=== PATIENT | female | born 1940 | race Caucasian/White ===

== ENCOUNTER → 2016-12-15 | Outpatient (CLI) | payer MEDICARE, BC ==
[~2016-12-15] MED LIST: ASPIRIN 32325 MG/TA1 PO; ASPIRIN E.C. 8181 MG PO; BENADRYL25 MG PO; CALCIUM 600MG+D1 TAB PO; CELEBREX 200MG200 MG PO; COLACE 100100 MG/CAP PO; ESTRACE 1MG1 MG/TAB PO; ESTROPIPATE; FISH OIL 1000MG1 CAP PO; FOLIC ACID 11 MG/TA1 PO; LEVOXYL0.125 MG PO; METAMUCIL3.4 GM/DOS PO; METHIMAZOLE; NATURAL IRON65 MG PO; NORCO 325 MG-7.1 TAB PO; OSTEO-BI-FLEX 21 TAB PO; Orajel MM; PRAVACHOL 20MG20 MG PO; RANITIDINE HYD300 MG PO; TOPROL XL 50MG50 MG PO; TOPROL XL50 MG PO; TYLENOL 500MG500 MG PO; ULTRAM 50MG TAB50 MG PO; VESICARE10 MG PO; VITAMIN D; VITAMIN D32000 I1 PO; VITAMINC1000TA PO; WOMEN'S DAILY F1 TAB PO; ZANTAC 300300 MG PO
== END ==
LOC: COL.VAS 16:42
DX: M79.604 Pain in right leg (principal); M79.89 Other specified soft tissue disorders

== ENCOUNTER → 2017-07-04 | Outpatient (CLI) | payer MEDICARE, BC | LOC: MC.RAD 08:55 | DX: Z12.31 Encounter for screening mammogram for malignant neoplasm of breast (principal) ==

== ENCOUNTER → 2017-11-23 | Outpatient (CLI) | payer MEDICARE, BC | LOC: COL.VAS 09:38 | DX: I08.1 Rheumatic disorders of both mitral and tricuspid valves (principal); I27.0 Primary pulmonary hypertension ==

== ENCOUNTER 2018-03-10 21:16 | Emergency (ER) | payer MEDICARE, BC ==
[~2018-03-10] VITALS: Ht 157.5 cm; Wt 88.6 kg
[2018-03-10 21:26] VITALS: BP 170/84; TEMP 98.8
[2018-03-10] MEDS ORDERED: TYLENOL 500MG500 MG PO (22:31)
[2018-03-10] MEDS ORDERED: ESTRACE 1MG1 MG/TAB PO (22:32)
[2018-03-10] MEDS ORDERED: IBU800 M1 PO (22:33)
[2018-03-10] MEDS ORDERED: LAMISIL250 M1 (22:35)
[2018-03-10] MEDS ORDERED: ULTRAM 50MG TAB50 MG PO (22:36)
[2018-03-10] MEDS ORDERED: CEPHALEXIN500 M1 PO ×2 (22:48)
[2018-03-10 23:02] VITALS: PULSE 70
== END 2018-03-10 23:02 | disposition home or self-care (01) ==
LOC: COL.ER 21:16
DX: S61.431A Puncture wound without foreign body of right hand, initial encounter (principal); Z79.82 Long term (current) use of aspirin; W26.8XXA Contact with other sharp object(s), not elsewhere classified, initial encounter

== ENCOUNTER 2018-05-09 02:14 | Emergency (ER) | payer MEDICARE, BC ==
[~2018-05-09] VITALS: Ht 157.5 cm; Wt 86.8 kg
[~2018-05-09 02:14] MED LIST changes: +CEPHALEXIN500 M1 PO; +IBU800 M1 PO; +LAMISIL250 M1; +LEVOXYL0.112 MG PO; -LEVOXYL0.125 MG PO
[2018-05-09 02:18] VITALS: TEMP 99.6
[2018-05-09 03:05] LABS: BASO % 0.3 % (0.0-2.0); EOS # 0.1 (0.0-0.7); EOS % 1.1 % (0-4.0); GRAN % 76.9 % (42.2-75.2); HEMOGLOBIN 10.3 g/dl (12.5-16.0); LYMPH % 11.3 % (20.0-51.0); MEAN CELL VOLUME 88 fl (80.0-100.0); MEAN CORPUSCULAR HEMOGLOBIN 30 pg (27.0-31.0); MEAN CORPUSCULAR HGB CONC 33 g/dl (33.0-37.0); MEAN PLATELET VOLUME 10.3 fl (7.4-10.4); MONO # 0.9 (0.1-0.6); MONO % 10.1 % (1.7-9.3); PLATELET COUNT 212 K/mm3 (130-400); RED BLOOD COUNT 3.49 M/mm3 (4.10-5.30); REDCELL DISTRIBUTION WIDTH-CV 13.6 % (11.5-14.5)
[2018-05-09 03:06] LABS: HEMATOCRIT 30.8 % (37.0-47.0)
[2018-05-09 03:10] LABS: PROTHROMBIN TIME 11.5 SECONDS (9.7-12.8)
[2018-05-09 03:13] LABS: PARTIAL THROMBOPLASTIN TIME 29.1 SECONDS (26.0-37.0)
[2018-05-09 03:16] LABS: ALANINE AMINOTRANSFERASE 24 U/L (9-52); ALKALINE PHOSPHATASE 73 U/L (50-136); ANION GAP 11 mmol/L (7-16); AST,SGOT 19 U/L (15-37); BILIRUBIN,TOTAL 0.7 mg/dL (0.0-1.0); BLOOD UREA NITROGEN 14 mg/dL (7-17); CALCIUM 8.6 mg/dL (8.4-10.2); CARBON DIOXIDE 26 mmol/L (22-30); CHLORIDE 98 mmol/L (98-107); GLUCOSE 134 mg/dL (74-106); POTASSIUM 3.3 mmol/L (3.4-5.0); SODIUM 135 mmol/L (137-145); TOTAL PROTEIN 6.5 gm/dL (6.4-8.2)
[2018-05-09 03:19] LABS: ALBUMIN 3.3 gm/dL (3.5-5.0)
[2018-05-09 03:28] LABS: TROPONIN-I < 0.012 ng/mL (0.000-0.034)
[2018-05-09] MEDS ORDERED: TOPROL XL 50MG50 MG PO (04:56)
[2018-05-09] MEDS ORDERED: CRESTOR20 MG PO (04:57)
[2018-05-09] MEDS ORDERED: CALCIUM CITRATE1 TA1 PO (04:59)
[2018-05-09 05:00] VITALS: BP 138/74; PULSE 84
[2018-05-09] MEDS ORDERED: K-DUR20 MEQ PO (05:01)
[2018-05-09] MEDS ORDERED: LASIX 20MG TABL20 MG PO (05:01)
[2018-05-09] MEDS ORDERED: LEVAQUIN 5500 MG/TA1 PO (05:02)
[2018-05-09] MEDS ORDERED: LASIX 40MG TABL40 MG PO (05:03)
[2018-05-09] MEDS ORDERED: COLACE 100100 MG/CAP PO (20:36)
== END 2018-05-09 05:18 | disposition home or self-care (01) ==
LOC: COL.ER 02:14
PROVIDERS: Family Medicine
DX: K21.9 Gastro-esophageal reflux disease without esophagitis (principal); I10 Essential (primary) hypertension; Z79.82 Long term (current) use of aspirin

== ENCOUNTER 2018-05-09 15:24 | Inpatient (IN) | payer MEDICARE, BC ==
[~2018-05-09] VITALS: Ht 157.5 cm; Wt 89.9 kg
[~2018-05-09 15:24] MED LIST changes: +CALCIUM CITRATE1 TA1 PO; +CRESTOR20 MG PO; +K-DUR20 MEQ PO; +LASIX 20MG TABL20 MG PO; +LASIX 40MG TABL40 MG PO; +LEVAQUIN 5500 MG/TA1 PO
[2018-05-09 16:07] LABS: BASO % 0.4 % (0.0-2.0); EOS # 0.2 (0.0-0.7); EOS % 1.6 % (0-4.0); GRAN # 6.8 (1.4-6.5); GRAN % 73.4 % (42.2-75.2); HEMOGLOBIN 10.6 g/dl (12.5-16.0); LYMPH # 1.1 (1.2-3.4); LYMPH % 11.5 % (20.0-51.0); MEAN CELL VOLUME 89 fl (80.0-100.0); MEAN CORPUSCULAR HEMOGLOBIN 30 pg (27.0-31.0); MEAN CORPUSCULAR HGB CONC 34 g/dl (33.0-37.0); MEAN PLATELET VOLUME 10.3 fl (7.4-10.4); MONO # 1.2 (0.1-0.6); MONO % 12.8 % (1.7-9.3); PLATELET COUNT 218 K/mm3 (130-400); RED BLOOD COUNT 3.53 M/mm3 (4.10-5.30); REDCELL DISTRIBUTION WIDTH-CV 13.8 % (11.5-14.5)
[2018-05-09 16:08] LABS: HEMATOCRIT 31.4 % (37.0-47.0)
[2018-05-09 16:33] LABS: TROPONIN-I < 0.012 ng/mL (0.000-0.034)
[2018-05-09 18:38] LABS: ALBUMIN 3.5 gm/dL (3.5-5.0); CALCIUM 8.9 mg/dL (8.4-10.2); CREATININE, serum 0.9 mg/dL (0.52-1.25); POTASSIUM 3.3 mmol/L (3.4-5.0); TOTAL PROTEIN 6.9 gm/dL (6.4-8.2)
[2018-05-09 19:57] VITALS: BP 120/44; PULSE 73; TEMP 98.9
[2018-05-09] MEDS ORDERED: COLACE 100100 MG/CAP PO (20:36)
[2018-05-09 20:57] LABS: MAGNESIUM 1.4 mg/dL (1.6-2.3); PHOSPHOROUS 3.3 mg/dL (2.5-4.5)
[2018-05-09 21:20] LABS: C-REACTIVE PROTEIN 11.7 mg/dL (0.0-0.9)
[2018-05-09 21:24] LABS: THYROID STIMULATING HORMONE 0.825 uIU/mL (0.465-4.680)
[2018-05-09 21:28] LABS: PROTHROMBIN TIME 11.4 SECONDS (9.7-12.8)
[2018-05-09 21:31] LABS: PARTIAL THROMBOPLASTIN TIME 28.5 SECONDS (26.0-37.0)
[2018-05-09 22:13] VITALS: BP 148/48; PULSE 92; TEMP 98.3
[2018-05-09 23:30] VITALS: BP 112/42; PULSE 86; TEMP 98.8
[2018-05-10] VITALS (13 sets, daily range): BP systolic 96–139; BP diastolic 37–67; PULSE 76–105; TEMP 98.3–100.1
[2018-05-10 07:05] LABS: BASO % 0.4 % (0.0-2.0); EOS # 0.2 (0.0-0.7); GRAN # 5.4 (1.4-6.5); GRAN % 70.3 % (42.2-75.2); LYMPH # 1.1 (1.2-3.4); LYMPH % 14.6 % (20.0-51.0); MEAN CELL VOLUME 89 fl (80.0-100.0); MEAN CORPUSCULAR HEMOGLOBIN 29 pg (27.0-31.0); MEAN CORPUSCULAR HGB CONC 33 g/dl (33.0-37.0); MEAN PLATELET VOLUME 10.6 fl (7.4-10.4); MONO # 0.9 (0.1-0.6); MONO % 11.3 % (1.7-9.3); PLATELET COUNT 218 K/mm3 (130-400); REDCELL DISTRIBUTION WIDTH-CV 13.9 % (11.5-14.5)
[2018-05-10 07:09] LABS: HEMATOCRIT 30.3 % (37.0-47.0)
[2018-05-10 07:17] LABS: ALBUMIN 3.1 gm/dL (3.5-5.0); BILIRUBIN,TOTAL 0.8 mg/dL (0.0-1.0); CALCIUM 8.7 mg/dL (8.4-10.2); CHOLESTEROL RISK RATIO 2.4; CREATININE, serum 0.89 mg/dL (0.52-1.25); POTASSIUM 3.7 mmol/L (3.4-5.0); TOTAL PROTEIN 6.3 gm/dL (6.4-8.2)
[2018-05-10 07:29] LABS: TROPONIN-I 0.155 ng/mL (0.000-0.034)
[2018-05-11 03:50] VITALS: BP 132/49; PULSE 72; TEMP 97.5
[2018-05-11 07:39] VITALS: BP 120/50; PULSE 70; TEMP 98
[2018-05-11 08:04] LABS: BASO % 0.4 % (0.0-2.0); EOS # 0.3 (0.0-0.7); EOS % 3.6 % (0-4.0); GRAN % 67.4 % (42.2-75.2); HEMOGLOBIN 10.6 g/dl (12.5-16.0); LYMPH # 1.3 (1.2-3.4); LYMPH % 17.8 % (20.0-51.0); MEAN CELL VOLUME 89 fl (80.0-100.0); MEAN CORPUSCULAR HEMOGLOBIN 30 pg (27.0-31.0); MEAN CORPUSCULAR HGB CONC 34 g/dl (33.0-37.0); MEAN PLATELET VOLUME 10.4 fl (7.4-10.4); MONO # 0.8 (0.1-0.6); MONO % 10.5 % (1.7-9.3); PLATELET COUNT 253 K/mm3 (130-400); RED BLOOD COUNT 3.55 M/mm3 (4.10-5.30); REDCELL DISTRIBUTION WIDTH-CV 13.6 % (11.5-14.5)
[2018-05-11 08:12] LABS: HEMATOCRIT 31.6 % (37.0-47.0)
[2018-05-11 08:25] LABS: CALCIUM 9.2 mg/dL (8.4-10.2); CREATININE, serum 0.95 mg/dL (0.52-1.25); MAGNESIUM 1.6 mg/dL (1.6-2.3); POTASSIUM 3.2 mmol/L (3.4-5.0)
[2018-05-11 08:39] LABS: TROPONIN-I 0.121 ng/mL (0.000-0.034)
[2018-05-11 11:49] VITALS: BP 110/46; PULSE 78; TEMP 98.1
== END 2018-05-11 14:18 | disposition home or self-care (01) | DRG 392 ==
LOC: COL.ER 15:24 → MEDICAL 18:17
PROVIDERS: Emergency Medicine; Nurse Practitioner Family; Physician Assistant
DX: K21.9 Gastro-esophageal reflux disease without esophagitis (principal); I10 Essential (primary) hypertension; G89.29 Other chronic pain; E87.6 Hypokalemia; E83.42 Hypomagnesemia; G47.33 Obstructive sleep apnea (adult) (pediatric)
CPT/HCPCS: 99222-AI; 99239; A9502; G0378; J1940; J2270; J2405; J2785; J3475; Q9967

== ENCOUNTER 2018-11-29 18:14 | Emergency (ER) | payer MEDICARE, BC ==
[~2018-11-29] VITALS: Ht 157.5 cm; Wt 86.4 kg
[2018-11-29 18:29] VITALS: TEMP 96.8
[2018-11-29 19:03] LABS: BASO # 0.1 (0.0-0.2); BASO % 0.9 % (0.0-2.0); EOS # 0.1 (0.0-0.7); EOS % 1.1 % (0-4.0); GRAN % 75.4 % (42.2-75.2); HEMOGLOBIN 10.7 g/dl (12.5-16.0); LYMPH # 1.3 (1.2-3.4); LYMPH % 15.8 % (20.0-51.0); MEAN CELL VOLUME 88 fl (80.0-100.0); MEAN CORPUSCULAR HEMOGLOBIN 29 pg (27.0-31.0); MEAN CORPUSCULAR HGB CONC 32 g/dl (33.0-37.0); MEAN PLATELET VOLUME 10.3 fl (7.4-10.4); MONO # 0.5 (0.1-0.6); MONO % 6.5 % (1.7-9.3); PLATELET COUNT 255 K/mm3 (130-400); RED BLOOD COUNT 3.75 M/mm3 (4.10-5.30); REDCELL DISTRIBUTION WIDTH-CV 13.8 % (11.5-14.5)
[2018-11-29 19:20] LABS: ALANINE AMINOTRANSFERASE 22 U/L (9-52); ALBUMIN 4.1 gm/dL (3.5-5.0); ALKALINE PHOSPHATASE 76 U/L (50-136); ANION GAP 7 mmol/L (7-16); AST,SGOT 24 U/L (15-37); BILIRUBIN,TOTAL 0.4 mg/dL (0.0-1.0); BLOOD UREA NITROGEN 19 mg/dL (7-17); CALCIUM 8.8 mg/dL (8.4-10.2); CARBON DIOXIDE 30 mmol/L (22-30); CHLORIDE 100 mmol/L (98-107); CREATININE, serum 1.07 mg/dL (0.52-1.25); GLUCOSE 167 mg/dL (74-106); POTASSIUM 3.2 mmol/L (3.4-5.0); SODIUM 136 mmol/L (137-145); TOTAL PROTEIN 7.2 gm/dL (6.4-8.2)
[2018-11-29 19:31] LABS: TROPONIN-I < 0.012 ng/mL (0.000-0.034)
[2018-11-29 19:40] LABS: COLLECTION METHOD CLEAN CATCH
[2018-11-29 19:49] LABS: INR 0.9 (0.8-3.0); PROTHROMBIN TIME 10.3 SECONDS (9.7-12.8)
[2018-11-29 19:50] LABS: MUCOUS Present /lpf; PH 6 (5-8); URINE APPEARANCE Hazy; URINE BACTERIA Rare /hpf; URINE BILIRUBIN Negative (NEGATIVE); URINE BLOOD Negative (NEGATIVE); URINE COLOR Yellow; URINE GLUCOSE Negative (NEGATIVE); URINE KETONE Negative (NEGATIVE); URINE LEUKOCYTE ESTERASE Negative (NEGATIVE); URINE NITRATE Negative (NEGATIVE); URINE PROTEIN(semi-quant) 1+ (NEGATIVE); URINE RBC 0-2 /hpf; URINE UROBILINOGEN Negative (NEGATIVE)
[2018-11-29 21:15] VITALS: BP 143/72; PULSE 67
== END 2018-11-29 21:58 | disposition home or self-care (01) ==
LOC: COL.ER 18:14
PROVIDERS: Emergency Medicine
DX: T40.4X5A Adverse effect of other synthetic narcotics, initial encounter (principal); E87.6 Hypokalemia; K21.9 Gastro-esophageal reflux disease without esophagitis; I10 Essential (primary) hypertension; E78.5 Hyperlipidemia, unspecified; E03.9 Hypothyroidism, unspecified; G89.29 Other chronic pain; G62.9 Polyneuropathy, unspecified; Z95.0 Presence of cardiac pacemaker; Z79.82 Long term (current) use of aspirin; Z79.1 Long term (current) use of non-steroidal anti-inflammatories (NSAID)
CPT/HCPCS: J2765; J7030

== ENCOUNTER → 2019-06-25 | Outpatient (CLI) | payer MEDICARE, BC | LOC: COL.VAS 14:48 | DX: M79.604 Pain in right leg (principal) ==

== ENCOUNTER → 2020-03-24 | Outpatient (CLI) | payer MEDICARE, BC | LOC: COL.RAD 09:08 | DX: R39.14 Feeling of incomplete bladder emptying (principal); N28.1 Cyst of kidney, acquired ==

== ENCOUNTER 2020-05-16 21:35 | Emergency (ER) | payer MEDICARE, BC ==
[~2020-05-16] VITALS: Ht 157.5 cm; Wt 86.4 kg
[2020-05-16 21:39] VITALS: BP 128/81; TEMP 97.9
[2020-05-16] MEDS ORDERED: CEPHALEXIN500 M1 PO ×2 (22:09→22:14)
[2020-05-16 22:22] VITALS: PULSE 81
== END 2020-05-16 22:22 | disposition home or self-care (01) ==
LOC: COL.ER 21:35
DX: S80.862A Insect bite (nonvenomous), left lower leg, initial encounter (principal); Z79.82 Long term (current) use of aspirin; W57.XXXA Bitten or stung by nonvenomous insect and other nonvenomous arthropods, initial encounter

== ENCOUNTER 2020-10-04 17:30 | Inpatient (IN) | payer MEDICARE, BC ==
[~2020-10-04] VITALS: Ht 157.5 cm; Wt 81.0 kg
[2020-10-04 18:36] LABS: COLLECTION METHOD CLEAN CATCH
[2020-10-04 18:41] LABS: BASO % 0.2 % (0.0-2.0); EOS % 0.4 % (0-4.0); GRAN # 3.1 (1.4-6.5); GRAN % 69.7 % (42.2-75.2); HEMATOCRIT 39.8 % (37.0-47.0); HEMOGLOBIN 13.1 g/dl (12.5-16.0); LYMPH # 0.9 (1.2-3.4); LYMPH % 20.2 % (20.0-51.0); MEAN CELL VOLUME 83 fl (80.0-100.0); MEAN CORPUSCULAR HEMOGLOBIN 27 pg (27.0-31.0); MEAN CORPUSCULAR HGB CONC 33 g/dl (33.0-37.0); MEAN PLATELET VOLUME 9.5 fl (7.4-10.4); MONO # 0.4 (0.1-0.6); MONO % 9.1 % (1.7-9.3); PLATELET COUNT 282 K/mm3 (130-400); REDCELL DISTRIBUTION WIDTH-CV 16.5 % (11.5-14.5)
[2020-10-04 18:44] LABS: PH 7 (5-8); URINE APPEARANCE Clear; URINE BACTERIA None Seen /hpf; URINE BILIRUBIN Negative (NEGATIVE); URINE BLOOD Negative (NEGATIVE); URINE COLOR Straw; URINE GLUCOSE Negative (NEGATIVE); URINE KETONE Negative (NEGATIVE); URINE LEUKOCYTE ESTERASE Negative (NEGATIVE); URINE NITRATE Negative (NEGATIVE); URINE PROTEIN(semi-quant) Negative (NEGATIVE); URINE RBC 0-2 /hpf; URINE UROBILINOGEN Negative (NEGATIVE)
[2020-10-04 18:57] LABS: ALBUMIN 4.3 gm/dL (3.5-5.0); BILIRUBIN,TOTAL 0.5 mg/dL (0.0-1.0); C-REACTIVE PROTEIN 0.8 mg/dL (0.0-0.9); CALCIUM 8.5 mg/dL (8.4-10.2); CREATININE, serum 0.73 (0.52-1.25); TOTAL PROTEIN 7.5 gm/dL (6.4-8.2)
[2020-10-04 19:11] LABS: POTASSIUM 2.6 mmol/L (3.4-5.0)
[2020-10-04] MEDS ORDERED: SYNTHROID0.1 MG/TAB PO (23:40)
[2020-10-04] MEDS ORDERED: TYLENOL 325MG325 MG PO (23:48)
[2020-10-04] MEDS ORDERED: PEPCID40 MG PO (23:51)
[2020-10-05 00:13] VITALS: BP 138/58; BP 138/78; PULSE 77; TEMP 98.8
--- NOTE | 2020-10-05 00:30 | NUR ---
Admitted to medical floor from ER, DX afib, covid +,, in droplet/contact Isolation. VSS, temp 99.2, sats 96-97% on RA, Up to bathroom with walker - steady on feet- Did receive Potassium and Magnesium in the ER. Tele on.
[2020-10-05 02:57] VITALS: BP 120/68; PULSE 98; TEMP 98.8
[2020-10-05] MEDS ORDERED: VESICARE10 MG PO ×2 (03:14→06:59)
--- NOTE | 2020-10-05 05:35 | NUR ---
No requests, Tele on- afib rate 80/min,, o2 sats 95% on RA, temp 98.8. Up to bathroom with walker-voiding yellow clear urine. Denies pain. In droplet/contact Isolation.
--- NOTE | 2020-10-05 08:26 | NUR ---
SHIFT REPORT RECEVIED. NIGHT NURSE REMAINED AT BEDSIDE TO COLLECT AM LABS. PT DENEIS ANY OTHER NEEDS AT THIS TIME
[2020-10-05 08:52] VITALS: BP 119/59; PULSE 69; TEMP 97.7
[2020-10-05 08:59] LABS: LACTATE DEHYDROGENASE 502 U/L (313-618); POTASSIUM 3.4 mmol/L (3.4-5.0); TRIGLYCERIDE 109 mg/dL
[2020-10-05 09:13] LABS: TROPONIN-I < 0.012 ng/mL (0.000-0.035)
[2020-10-05 09:29] LABS: TSH w REFLEX 0.123 uIU/mL (0.465-4.680)
[2020-10-05 11:53] VITALS: BP 142/66; PULSE 75; TEMP 97.5
[2020-10-05 12:14] LABS: PARTIAL THROMBOPLASTIN TIME 30.8 SECONDS (26.0-37.0)
[2020-10-05 12:15] LABS: INR 0.9 (0.8-3.0); PROTHROMBIN TIME 9.9 SECONDS (9.7-12.8)
--- NOTE | 2020-10-05 13:42 | NUR ---
pt rounded on. assisted into bathroom. was speaking to son on phone. would like PRN ativan dose after lunch so she can nap. RT in room. no other needs at this time. compliant with fluid restriction
[2020-10-05 16:00] VITALS: BP 138/64; PULSE 88; TEMP 97.8
--- NOTE | 2020-10-05 16:59 | NUR ---
Mobile Electronics Installer contacted patient by phone to discuss discharge planning as she is COVID positive. Patient states her life partner, Wai is currently at [facility] and will likely pass away. Patient is tearful and states she and Wai have been together a long time. SW offered emotional support. Patient lives in [place] and sees Dr. James for primary care. Patient obtains medications from [facility] with no difficulties. Patient states she has walkers, canes, a wheelchair, transport chair, and that her home is handicap accessible due to her partner Wai's needs. Patient states she is normally independent with ADLS and plans to return home upon discharge. Patient has DPOA-HC in EMR which designates Wai, her daughter Nava (ph#[phone]) and her son, Seamus (ph#[phone]). SW will continue to follow for discharge needs.
--- NOTE | 2020-10-05 17:58 | NUR ---
PT ASSISTED INTO SHOWER. REQUIRED SET UP ONLY. REPORTS SENSE OF SMELL NOW ACTIVE. TASTE STILL NOT BACK TO NORMAL. NO OTHER NEEDS. UP EATING DINNER
[2020-10-05 19:49] VITALS: BP 122/56; PULSE 83; TEMP 97.3
--- NOTE | 2020-10-05 23:37 | NUR ---
Pt resting in bed, assessment completed and medications given per MAR. pt denies shortness of breath and is on room air, lung sounds are slightly diminished and cough is nonproductive. heart sounds are irregular and pt is in AFIB shown on Tele monitor, rate controlled. no other needs at this time, will continue to monitor.
[2020-10-06] VITALS: BP 132/53; PULSE 73; TEMP 98.3
[2020-10-06 04:00] VITALS: BP 114/48; PULSE 66; TEMP 97.1
--- NOTE | 2020-10-06 06:20 | NUR ---
pt sleeping in bed most of the night, called for any needs. no reports of pain or shortness of breath, continues to be on room air. no other needs at this time.
[2020-10-06 08:11] VITALS: BP 120/70; PULSE 80; TEMP 97.3
--- NOTE | 2020-10-06 09:45 | NUR ---
PT PLEASANT, AOX4, VERY TALKATIVE, PT DENIES SOB BUT APPEARS TO HAVE LABORED BREATHING AT REST. PT REPORTS AMBULATING WITH WALKER WITH EVERY COMMERCIAL BREAK ON TV. PT REPORTING NEUROPATHY PAIN IN BLE, SHE REPORTS USING A "LASER LIGHT PAD" AT HOME FOR THE PAIN. PT MEDICATIONS GIVEN, VITALS REVIEWED, ASSESSMENT PERFORMED. MORE WATER AND BRIEFS BROUGHT IN PER PT REQUEST. NO OTHER NEEDS.
[2020-10-06 11:30] VITALS: BP 118/68; PULSE 72; TEMP 96.1
[2020-10-06 16:09] VITALS: BP 108/68; PULSE 78; TEMP 97.2
--- NOTE | 2020-10-06 16:38 | NUR ---
Feeder Tender spoke jane Coello RN who advised patient has been independent in her room.
--- NOTE | 2020-10-06 17:08 | NUR ---
PT ANXIOUS ABOUT IN LUCAN. PT REPORTS EXERCISING IN ROOM DURING COMMERCIAL BREAKS WITH WALKER. PT PLEASANT MOST OF THE TIME, A0X4, VITALS STABLE, ONE LOWER SYSTOLIC PRESSURE OF 108 MOST RECENTLY. ALL MEDICATIONS GIVEN, IND IN ROOM. DENIES SOB WITH EXERTION. NO OTHER NEEDS.
[2020-10-06 20:39] VITALS: BP 122/76; PULSE 76; TEMP 98.9
[2020-10-07] VITALS: BP 128/66; PULSE 75; TEMP 97.4
--- NOTE | 2020-10-07 00:18 | NUR ---
Pt resting in bed, assisted to the bathroom. assessment completed and medications given per JAN. on room air, oxygen sat 97%. pt denies shortness of breath and pain. nonproductive dry cough. heart sounds irregular, AFIB rate controlled. no fever, vital signs are stable. no other needs at this time, will continue to monitor.
[2020-10-07 04:09] VITALS: BP 132/75; PULSE 76; TEMP 98.6
--- NOTE | 2020-10-07 06:18 | NUR ---
pt sleeping on cpap during the night, independent in the room and called for any needs or assistance. no other needs at this time.
[2020-10-07 08:21] VITALS: BP 130/42; PULSE 68; TEMP 98
--- NOTE | 2020-10-07 08:21 | NUR ---
PT C/O HEADACHE 04/05, TYLENOL GIVEN, HEADACHE SINCE RESOLVED, PT AOX4, REPORTS FEELING WEAKER THAN YESTERDAY, PT STILL AMBULATING IN ROOM, PT VITALS TAKEN, MEDS GIVEN, ASSESSMENT PERFORMED, LABS DRAWN, JOERU NOTIFIED OF CRITICAL POTASSIUM, POTASSIUM REPLACEMENT ORDERED/GIVEN. NO OTHER NEEDS AT THIS TIME.
[2020-10-07 08:45] LABS: BASO % 0.1 % (0.0-2.0); GRAN # 7.1 (1.4-6.5); GRAN % 83.7 % (42.2-75.2); HEMOGLOBIN 13.7 g/dl (12.5-16.0); LYMPH % 11.5 % (20.0-51.0); MEAN CELL VOLUME 86 fl (80.0-100.0); MEAN CORPUSCULAR HEMOGLOBIN 27 pg (27.0-31.0); MEAN CORPUSCULAR HGB CONC 32 g/dl (33.0-37.0); MONO # 0.4 (0.1-0.6); MONO % 4.5 % (1.7-9.3); PLATELET COUNT 327 K/mm3 (130-400); RED BLOOD COUNT 5.03 M/mm3 (4.10-5.30); REDCELL DISTRIBUTION WIDTH-CV 16.7 % (11.5-14.5)
[2020-10-07 08:50] LABS: CALCIUM 9.2 mg/dL (8.4-10.2); CREATININE, serum 0.72 (0.52-1.25)
[2020-10-07 08:54] LABS: POTASSIUM 2.9 mmol/L (3.4-5.0)
[2020-10-07] MEDS ORDERED: ELIQUIS 5MG PO (10:01)
[2020-10-07] MEDS ORDERED: TOPROL XL 25MG25 MG PO (10:01)
[2020-10-07] MEDS ORDERED: PROAIR HFA0.09 MG/AC IH (10:01)
[2020-10-07] MEDS ORDERED: ZITHROMAX500 M2 PO (11:03)
[2020-10-07] MEDS ORDERED: DECADRON6 MG PO (11:04)
--- NOTE | 2020-10-07 11:16 | NUR ---
ATTEMPTED TO CALL BACK ALVIN FROM [place], NO ANSWER, POSSIBLE WRONG NUMBER WRITTEN DOWN.
--- NOTE | 2020-10-07 11:46 | NUR ---
Dress Fitter collaborated with Hospitalist who advised patient is cleared for discharge today. PANCHO spoke with patient who states she is ready to get home and will be driving herself home. Patient will not require home oxygen at discharge. PANCHO discussed Home Health Services with patient who doesn't think she will need it, but is open to having services set up for a short time. Patient would like to have [facility]. Patient has no concerns about returning home at this time. PANCHO contacted patient's son, Seamus to review discharge plan. Seamus is in agreement with plan for discharge home today [facility]. PANCHO contacted Gretchen at [facility] and faxed referral. Gretchen advised they would sheepskin pickler patient for services. PANCHO faxed discharge orders. No additional needs at this time.
[2020-10-07 12:11] VITALS: BP 138/62; PULSE 88; TEMP 99.1
--- NOTE | 2020-10-07 15:15 | NUR ---
DISCHARGE EDUCATION PROVIDED FOR PT. MEDICATIONS WENT OVER THOROUGHLY, PT MENTIONED BEING CONCERNED ABOUT AFFORDING ELLIQUIS, BUT MENTIONED GETTING IT FREE FROM DR. PEREZ HER PCP. BLOOD DRAWN FOR POTASSIUM LEVEL. NO OTHER NEEDS AT THIS TIME.
--- NOTE | 2020-10-07 17:05 | NUR ---
PT INT DISCONTINUED. PT ESCORTED OUT WITH BELONGINGS ADN DISCHARGE PAPERWORK. NO OTHER NEEDS AT THIS TIME.
== END 2020-10-07 17:05 | disposition home or self-care (01) | DRG 179 ==
LOC: COL.ER 17:30 → MEDICAL 22:33
PROVIDERS: Emergency Medicine; Nurse Practitioner Family; Student in an Organized Health Care Education/Training Program
DX: U07.1 COVID-19 (principal); E66.9 Obesity, unspecified; I48.91 Unspecified atrial fibrillation; G47.30 Sleep apnea, unspecified; G89.29 Other chronic pain; Z96.641 Presence of right artificial hip joint; E03.9 Hypothyroidism, unspecified; K21.9 Gastro-esophageal reflux disease without esophagitis; E87.6 Hypokalemia; E83.42 Hypomagnesemia; Z79.82 Long term (current) use of aspirin; Z90.710 Acquired absence of both cervix and uterus; Z90.89 Acquired absence of other organs; Z68.32 Body mass index [BMI] 32.0-32.9, adult
CPT/HCPCS: 99223-AI; 99233-AI; 99239; J0456; J0696; J1650; J1885; J3475; J7030; J7050; J8540

== ENCOUNTER → 2020-11-13 | Day surgery (SDC) | payer MEDICARE, BC ==
[~2020-11-13] MED LIST changes: +DECADRON6 MG PO; +ELIQUIS 5MG PO; +PEPCID40 MG PO; +PROAIR HFA0.09 MG/AC IH; +SYNTHROID0.1 MG/TAB PO; +TOPROL XL 25MG25 MG PO; +TYLENOL 325MG325 MG PO; +ZITHROMAX500 M2 PO
== END ==
LOC: COL.CAR 11-12 07:00
DX: I48.0 Paroxysmal atrial fibrillation (principal); Z53.8 Procedure and treatment not carried out for other reasons

== ENCOUNTER 2020-12-08 09:31 | Day surgery (SDC) | payer MEDICARE, BC ==
[~2020-12-08] VITALS: Ht 157.6 cm; Wt 78.6 kg
[2020-12-08] VITALS (7 sets, daily range): BP systolic 108–143; BP diastolic 59–98; PULSE 52–70; TEMP 98
[~2020-12-08 09:31] MED LIST changes: -CALCIUM CITRATE1 TA1 PO; +CALCIUM/MAGNESI1 TAB PO; -SYNTHROID0.1 MG/TAB PO; +SYNTHROID0.112 MG/T PO; +VITAMIN D31000 I1 PO; -VITAMIN D32000 I1 PO
[2020-12-08 10:19] LABS: MEAN CELL VOLUME 87 fl (80.0-100.0); MEAN CORPUSCULAR HEMOGLOBIN 28 pg (27.0-31.0); MEAN CORPUSCULAR HGB CONC 33 g/dl (33.0-37.0); MEAN PLATELET VOLUME 10.1 fl (7.4-10.4); PLATELET COUNT 230 K/mm3 (130-400); RED BLOOD COUNT 3.87 M/mm3 (4.10-5.30); REDCELL DISTRIBUTION WIDTH-CV 16.7 % (11.5-14.5)
[2020-12-08 10:22] LABS: HEMATOCRIT 33.7 % (37.0-47.0)
[2020-12-08 10:34] LABS: CALCIUM 8.9 mg/dL (8.4-10.2); CREATININE, serum 0.91 (0.52-1.25); MAGNESIUM 1.7 mg/dL (1.6-2.3); POTASSIUM 3.3 mmol/L (3.4-5.0)
[2020-12-08 10:42] LABS: INR 1.4 (0.8-3.0); PROTHROMBIN TIME 15.5 SECONDS (9.7-12.8)
[2020-12-08 11:05] LABS: THYROID STIMULATING HORMONE 1.31 uIU/mL (0.465-4.680)
[2020-12-08] MEDS ORDERED: ELIQUIS 5MG PO (11:21)
[2020-12-08] MEDS ORDERED: ESTRACE 1MG1 MG/TAB PO (11:22)
[2020-12-08] MEDS ORDERED: ZOVIRAX 200MG200 MG PO (11:23)
[2020-12-08] MEDS ORDERED: FIBER0.52 GM PO (11:23)
[2020-12-08] MEDS ORDERED: PROAIR HFA0.09 MG/AC IH (11:24)
[2020-12-08] MEDS ORDERED: LASIX 40MG TABL40 MG PO (11:25)
[2020-12-08] MEDS ORDERED: TOPROL XL 25MG25 MG PO (11:26)
[2020-12-08] MEDS ORDERED: SHINGRIX V50 MCG/0.5 IM (11:29)
[2020-12-08] MEDS ORDERED: PACERONE200 MG PO (12:21)
[2020-12-08] MEDS ORDERED: DEMADEX 20MG20 M1 PO (12:22)
[2020-12-08] MEDS ORDERED: ALDACTONE 25MG25 M1 PO (12:23)
--- NOTE | 2020-12-08 13:15 | NUR ---
Discharge instructions gien to pt.pt verbalizes understanding.INT removed,catheter tip intact.Pt escorted out via wheelchair by this nurse.
== END 2020-12-08 15:16 | disposition home or self-care (01) ==
LOC: COL.CAR 09:31
PROVIDERS: Internal Medicine Cardiovascular Disease
DX: I48.0 Paroxysmal atrial fibrillation (principal); I10 Essential (primary) hypertension; E03.9 Hypothyroidism, unspecified; E78.5 Hyperlipidemia, unspecified; K21.9 Gastro-esophageal reflux disease without esophagitis; G47.33 Obstructive sleep apnea (adult) (pediatric); G62.9 Polyneuropathy, unspecified; M19.90 Unspecified osteoarthritis, unspecified site; Z88.5 Allergy status to narcotic agent; Z88.8 Allergy status to other drugs, medicaments and biological substances; Z96.641 Presence of right artificial hip joint; Z90.710 Acquired absence of both cervix and uterus; Z79.01 Long term (current) use of anticoagulants; Z20.822 Contact with and (suspected) exposure to COVID-19
CPT/HCPCS: J7030

== ENCOUNTER 2021-02-13 20:39 | Emergency (ER) | payer MEDICARE, BC ==
[~2021-02-13] VITALS: Ht 157.5 cm; Wt 75.0 kg
[~2021-02-13 20:39] MED LIST changes: +ALDACTONE 25MG25 M1 PO; +DEMADEX 20MG20 M1 PO; +FIBER0.52 GM PO; +PACERONE200 MG PO; +SHINGRIX V50 MCG/0.5 IM; +ZOVIRAX 200MG200 MG PO
[2021-02-13 20:53] VITALS: TEMP 98.2
[2021-02-13 21:07] LABS: BASO % 0.5 % (0.0-2.0); EOS # 0.1 (0.0-0.7); EOS % 0.8 % (0-4.0); GRAN # 4.6 (1.4-6.5); GRAN % 61.9 % (42.2-75.2); HEMATOCRIT 37.8 % (37.0-47.0); HEMOGLOBIN 12.6 g/dl (12.5-16.0); LYMPH # 2.1 (1.2-3.4); LYMPH % 27.3 % (20.0-51.0); MEAN CELL VOLUME 89 fl (80.0-100.0); MEAN CORPUSCULAR HEMOGLOBIN 30 pg (27.0-31.0); MEAN CORPUSCULAR HGB CONC 33 g/dl (33.0-37.0); MEAN PLATELET VOLUME 9.8 fl (7.4-10.4); MONO # 0.7 (0.1-0.6); MONO % 9.1 % (1.7-9.3); PLATELET COUNT 300 K/mm3 (130-400); RED BLOOD COUNT 4.23 M/mm3 (4.10-5.30); REDCELL DISTRIBUTION WIDTH-CV 15.2 % (11.5-14.5)
[2021-02-13 21:20] LABS: ALANINE AMINOTRANSFERASE 60 U/L (4-34); ALBUMIN 4.2 gm/dL (3.5-5.0); ALKALINE PHOSPHATASE 88 U/L (50-136); ANION GAP 8 mmol/L (7-16); AST,SGOT 61 U/L (15-37); BILIRUBIN,TOTAL 0.2 mg/dL (0.0-1.0); BLOOD UREA NITROGEN 42 mg/dL (7-17); CALCIUM 9.1 mg/dL (8.4-10.2); CARBON DIOXIDE 32 mmol/L (22-30); CHLORIDE 98 mmol/L (98-107); CREATININE, serum 1.37 (0.52-1.25); GLUCOSE 124 mg/dL (74-106); POTASSIUM 3.8 mmol/L (3.4-5.0); SODIUM 138 mmol/L (137-145); TOTAL PROTEIN 7.6 gm/dL (6.4-8.2)
[2021-02-13 21:39] LABS: TROPONIN-I < 0.012 ng/mL (0.000-0.035)
[2021-02-14 03:27] VITALS: BP 114/65; PULSE 56
== END 2021-02-14 03:40 | disposition home or self-care (01) ==
LOC: COL.ER 20:39
PROVIDERS: Emergency Medicine
DX: N17.9 Acute kidney failure, unspecified (principal); R07.89 Other chest pain; I10 Essential (primary) hypertension; E03.9 Hypothyroidism, unspecified; E78.5 Hyperlipidemia, unspecified; E05.00 Thyrotoxicosis with diffuse goiter without thyrotoxic crisis or storm; E66.9 Obesity, unspecified; Z79.01 Long term (current) use of anticoagulants; Z98.890 Other specified postprocedural states; Z88.5 Allergy status to narcotic agent; Z79.82 Long term (current) use of aspirin; Z79.890 Hormone replacement therapy

== ENCOUNTER 2021-04-25 20:22 | Observation (INO) | payer MEDICARE, BC ==
[~2021-04-25] VITALS: Ht 157.5 cm; Wt 75.0 kg
[2021-04-25 21:56] LABS: BASO % 0.7 % (0.0-2.0); EOS # 0.2 (0.0-0.7); EOS % 3.4 % (0-4.0); GRAN # 3.5 (1.4-6.5); GRAN % 59.7 % (42.2-75.2); HEMATOCRIT 37.6 % (37.0-47.0); HEMOGLOBIN 12.3 g/dl (12.5-16.0); LYMPH # 1.4 (1.2-3.4); LYMPH % 24.4 % (20.0-51.0); MEAN CELL VOLUME 93 fl (80.0-100.0); MEAN CORPUSCULAR HEMOGLOBIN 30 pg (27.0-31.0); MEAN CORPUSCULAR HGB CONC 33 g/dl (33.0-37.0); MEAN PLATELET VOLUME 10.4 fl (7.4-10.4); MONO # 0.7 (0.1-0.6); MONO % 11.5 % (1.7-9.3); PLATELET COUNT 245 K/mm3 (130-400); RED BLOOD COUNT 4.04 M/mm3 (4.10-5.30); REDCELL DISTRIBUTION WIDTH-CV 14.1 % (11.5-14.5)
[2021-04-25 22:14] LABS: ALANINE AMINOTRANSFERASE 21 U/L (4-34); ALBUMIN 4.1 gm/dL (3.5-5.0); ALKALINE PHOSPHATASE 81 U/L (50-136); ANION GAP 5 mmol/L (7-16); AST,SGOT 33 U/L (15-37); BILIRUBIN,TOTAL 0.4 mg/dL (0.0-1.0); BLOOD UREA NITROGEN 33 mg/dL (7-17); CALCIUM 9.6 mg/dL (8.4-10.2); CARBON DIOXIDE 33 mmol/L (22-30); CHLORIDE 100 mmol/L (98-107); CREATININE, serum 1.46 (0.52-1.25); GLUCOSE 102 mg/dL (74-106); POTASSIUM 3.3 mmol/L (3.4-5.0); SODIUM 138 mmol/L (137-145); TOTAL PROTEIN 7.3 gm/dL (6.4-8.2)
[2021-04-25 22:37] LABS: TROPONIN-I < 0.012 ng/mL (0.000-0.035)
[2021-04-26 03:41] VITALS: BP 129/71; PULSE 60; TEMP 98.1
--- NOTE | 2021-04-26 04:17 | NUR ---
PT TRANSFERRED TO MEDICAL FLOOR VIA ED STAFF AT APPROXIMATELY 0300 HOURS. PT A/OX4, VSS, PATIENT 02 ROOM AIR, ASSESMENT AND ADMISSION COMPLETE. TELEMETRY MONITORING ON. MEDICATIONS ADMINISTERED ORDERED. PT DENIES PAIN, SOB, DIZZINESS, CHEST TIGHTNESS. PT CURRENTLY EXPRESSES NO ADDITIONAL NEEDS. CALL LIGHT WITHIN REACH.
[2021-04-26 04:43] LABS: BASO # 0.1 (0.0-0.2); BASO % 0.8 % (0.0-2.0); EOS # 0.3 (0.0-0.7); EOS % 4.2 % (0-4.0); GRAN # 4.1 (1.4-6.5); GRAN % 64.1 % (42.2-75.2); HEMATOCRIT 35.7 % (37.0-47.0); HEMOGLOBIN 11.6 g/dl (12.5-16.0); LYMPH # 1.4 (1.2-3.4); LYMPH % 21.3 % (20.0-51.0); MEAN CELL VOLUME 93 fl (80.0-100.0); MEAN CORPUSCULAR HEMOGLOBIN 30 pg (27.0-31.0); MEAN CORPUSCULAR HGB CONC 33 g/dl (33.0-37.0); MONO # 0.6 (0.1-0.6); MONO % 9.3 % (1.7-9.3); PLATELET COUNT 227 K/mm3 (130-400); RED BLOOD COUNT 3.83 M/mm3 (4.10-5.30); REDCELL DISTRIBUTION WIDTH-CV 14.1 % (11.5-14.5)
[2021-04-26 05:05] LABS: ANION GAP 2 mmol/L (7-16); BLOOD UREA NITROGEN 31 mg/dL (7-17); CALCIUM 9.5 mg/dL (8.4-10.2); CARBON DIOXIDE 33 mmol/L (22-30); CHLORIDE 100 mmol/L (98-107); GLUCOSE 166 mg/dL (74-106); POTASSIUM 3.8 mmol/L (3.4-5.0); SODIUM 134 mmol/L (137-145)
[2021-04-26 05:18] LABS: TROPONIN-I 6 HR POST INITIAL < 0.012 ng/mL (0.000-0.034)
[2021-04-26 05:26] LABS: CHOLESTEROL 147 mg/dL (120-200); CHOLESTEROL RISK RATIO 2.8; HDL CHOLESTEROL 52 mg/dL; LDL CHOLESTEROL 76 mg/dL; MAGNESIUM 1.8 mg/dL (1.6-2.3); TRIGLYCERIDE 96 mg/dL
[2021-04-26 07:48] VITALS: BP 97/47; PULSE 52; TEMP 97.8
[2021-04-26 07:50] VITALS: BP 107/46
--- NOTE | 2021-04-26 08:24 | NUR ---
Shift assessment complete. Pt sitting on side of bed. Denies chest pain/SOA/dizziness since arrival to unit overnight. Heart RRR. Lungs CTA. A&Ox4. Call light in reach.
[2021-04-26] MEDS ORDERED: MAALOX ADVANCE148 ML PO (09:26)
--- NOTE | 2021-04-26 12:05 | NUR ---
Discharge instructions discussed w/pt and all questions answered. IV to left forearm removed, tip intact. Pt escorted out to vehicle w/all belongings.
== END 2021-04-26 12:00 | disposition home or self-care (01) ==
LOC: COL.ER 20:22 → MEDICAL 04-26 00:01
PROVIDERS: Emergency Medicine; Nurse Practitioner; Student in an Organized Health Care Education/Training Program; ADMIT Internal Medicine
DX: R07.89 Other chest pain (principal); K21.9 Gastro-esophageal reflux disease without esophagitis; K44.9 Diaphragmatic hernia without obstruction or gangrene; M79.2 Neuralgia and neuritis, unspecified; I48.0 Paroxysmal atrial fibrillation; E87.6 Hypokalemia; E78.5 Hyperlipidemia, unspecified; E03.9 Hypothyroidism, unspecified; Z86.16 Personal history of COVID-19; E83.42 Hypomagnesemia; E66.9 Obesity, unspecified; Z79.899 Other long term (current) drug therapy; Z79.01 Long term (current) use of anticoagulants; Z79.82 Long term (current) use of aspirin; Z79.890 Hormone replacement therapy
CPT/HCPCS: G0378

== ENCOUNTER → 2021-07-27 | Outpatient (CLI) | payer MEDICARE, BC ==
[~2021-07-27] MED LIST changes: +AK POLY BAC OP; +ASPIRIN 81M81 MG/TA2 PO; +CALCIUM 600600 MG PO; +CALCIUM-MAGNES1 EAC1 PO; +CEPHALEXIN250 M1 PO; +CORDARONE200 MG/TAB PO; +DULCOLAX STOOL100 MG PO; +FISH OIL 500 M1 EAC1 PO; +LIPITOR 80MG80 MG PO; +LOTRISONE CREAM15 GM TP; +MAALOX ADVANCE148 ML PO; +MASON NATURAL1200 MG PO; +MASON NATURAL2000 IU PO; +MAXITROL OPHTH3.5 GM OP; +MIRALAX PA17 GM/Dose PO; +NITROSTAT0.4 MG/TAB SL; +OMNICEF 300MG300 MG PO; +ONE-A-DAY ESSE1 EACH PO; +PLAVIX 75MG TAB75 MG PO; +PROTONIX 40MG T40 MG PO; +TYLENOL W/COD1 UDTAB PO; +WOMEN'S DAILY1 TAB PO
== END ==
LOC: MC.RAD 10:33
DX: N64.4 Mastodynia (principal); Q83.9 Congenital malformation of breast, unspecified

== ENCOUNTER 2021-08-03 07:58 | Day surgery (SDC) | payer MEDICARE, BC ==
[~2021-08-03] VITALS: Ht 157.5 cm; Wt 75.6 kg
[~2021-08-03 07:58] MED LIST changes: -AK POLY BAC OP; -ASPIRIN 81M81 MG/TA2 PO; -CALCIUM 600600 MG PO; -CALCIUM-MAGNES1 EAC1 PO; -CEPHALEXIN250 M1 PO; -CORDARONE200 MG/TAB PO; -DULCOLAX STOOL100 MG PO; -FISH OIL 500 M1 EAC1 PO; -LIPITOR 80MG80 MG PO; -LOTRISONE CREAM15 GM TP; -MASON NATURAL1200 MG PO; -MASON NATURAL2000 IU PO; -MAXITROL OPHTH3.5 GM OP; -MIRALAX PA17 GM/Dose PO; -NITROSTAT0.4 MG/TAB SL; -OMNICEF 300MG300 MG PO; -ONE-A-DAY ESSE1 EACH PO; -PLAVIX 75MG TAB75 MG PO; -PROTONIX 40MG T40 MG PO; -TYLENOL W/COD1 UDTAB PO; -WOMEN'S DAILY1 TAB PO
[2021-08-03 09:21] VITALS: BP 114/65; PULSE 55; TEMP 97.8
[2021-08-03] MEDS ORDERED: TYLENOL 500MG500 MG PO (10:11)
[2021-08-03] MEDS ORDERED: ASPIRIN 81M81 MG/TA2 PO (10:11)
[2021-08-03] MEDS ORDERED: VESICARE10 MG PO (10:12)
[2021-08-03] MEDS ORDERED: PEPCID40 MG PO (10:13)
[2021-08-03] MEDS ORDERED: ELIQUIS 5MG PO (10:13)
[2021-08-03] MEDS ORDERED: FISH OIL 500 M1 EAC1 PO (10:14)
[2021-08-03] MEDS ORDERED: SYNTHROID0.112 MG/T PO (10:15)
[2021-08-03] MEDS ORDERED: ONE-A-DAY ESSE1 EACH PO (10:15)
[2021-08-03] MEDS ORDERED: OSTEO-BI-FLEX 21 TAB PO (10:16)
[2021-08-03] MEDS ORDERED: CRESTOR20 MG PO (10:17)
[2021-08-03] MEDS ORDERED: K-DUR20 MEQ PO (10:17)
[2021-08-03] MEDS ORDERED: VITAMINC1000TA PO (10:18)
[2021-08-03] MEDS ORDERED: ALDACTONE 25MG25 M1 PO (10:19)
[2021-08-03] MEDS ORDERED: VITAMIN D31000 I1 PO (10:19)
[2021-08-03] MEDS ORDERED: CORDARONE200 MG/TAB PO (10:20)
[2021-08-03] MEDS ORDERED: LASIX 20MG TABL20 MG PO (10:20)
[2021-08-03] MEDS ORDERED: PROTONIX 40MG T40 MG PO (10:35)
[2021-08-03 10:40] VITALS: BP 109/73; PULSE 60; TEMP 97.1
[2021-08-03 10:45] VITALS: BP 114/62; PULSE 55
[2021-08-03 11:00] VITALS: BP 114/73; PULSE 54
[2021-08-03 11:15] VITALS: BP 142/60; PULSE 52
--- NOTE | 2021-08-03 18:19 | NUR ---
1040 Pt returns from endo procedure via cart and RN assist to GI Martin 4. Pt ambulates from cart to recliner with RN assist. Monitors on and alarms set. Call light within reach. Report received from DAPHNEY Wang. Pt alert and oriented. Pt requests applesauce, water and juice. Pt denies any pain or nausea. 1100 Pt taking food and drink well. No complications noted. 1220 Discharge instructions given to pt and daughter in law. All questions answered to their satisfaction. Handed to pt are a thank you card and discharge information. 1228 Pt transferred out of the hospital via wheelchair and DAPHNEY Wang assist, to private vehicle driven by daughter in law.
== END 2021-08-03 12:28 | disposition home or self-care (01) ==
LOC: SDCO 07:58
DX: K29.30 Chronic superficial gastritis without bleeding (principal); K44.9 Diaphragmatic hernia without obstruction or gangrene; R13.10 Dysphagia, unspecified; I48.91 Unspecified atrial fibrillation; I12.9 Hypertensive chronic kidney disease with stage 1 through stage 4 chronic kidney disease, or unspecified chronic kidney disease; N18.9 Chronic kidney disease, unspecified; Z86.16 Personal history of COVID-19; E03.9 Hypothyroidism, unspecified; Z20.822 Contact with and (suspected) exposure to COVID-19; G47.33 Obstructive sleep apnea (adult) (pediatric); I25.10 Atherosclerotic heart disease of native coronary artery without angina pectoris; E78.5 Hyperlipidemia, unspecified; Z79.890 Hormone replacement therapy; Z79.01 Long term (current) use of anticoagulants; Z79.82 Long term (current) use of aspirin; Z79.899 Other long term (current) drug therapy
CPT/HCPCS: J2704; J7030

== ENCOUNTER 2021-09-07 21:49 | Emergency (ER) | payer MEDICARE, BC ==
[~2021-09-07] VITALS: Ht 157.5 cm; Wt 75.0 kg
[~2021-09-07 21:49] MED LIST changes: +ASPIRIN 81M81 MG/TA2 PO; +CORDARONE200 MG/TAB PO; +FISH OIL 500 M1 EAC1 PO; +ONE-A-DAY ESSE1 EACH PO; +PROTONIX 40MG T40 MG PO
[2021-09-07 22:44] LABS: BASO % 0.7 % (0.0-2.0); EOS # 0.1 K/mm3 (0.0-0.7); EOS % 2.2 % (0-4.0); GRAN % 66.6 % (42.2-75.2); HEMATOCRIT 38.3 % (37.0-47.0); HEMOGLOBIN 12.7 g/dl (12.5-16.0); LYMPH # 1.2 K/mm3 (1.2-3.4); LYMPH % 19.4 % (20.0-51.0); MEAN CELL VOLUME 93 fl (80.0-100.0); MEAN CORPUSCULAR HEMOGLOBIN 31 pg (27.0-31.0); MEAN CORPUSCULAR HGB CONC 33 g/dl (33.0-37.0); MEAN PLATELET VOLUME 9.9 fl (7.4-10.4); MONO # 0.6 K/mm3 (0.1-0.6); MONO % 10.6 % (1.7-9.3); PLATELET COUNT 232 K/mm3 (130-400); RED BLOOD COUNT 4.14 M/mm3 (4.10-5.30); REDCELL DISTRIBUTION WIDTH-CV 14.4 % (11.5-14.5)
[2021-09-07 22:50] LABS: INR 1.2 (0.8-3.0); PROTHROMBIN TIME 12.8 SECONDS (9.7-12.8)
[2021-09-07 22:57] LABS: ALANINE AMINOTRANSFERASE 22 U/L (0-55); ALBUMIN 3.5 gm/dL (3.4-4.8); ALKALINE PHOSPHATASE 106 U/L (0-750); ANION GAP 11 mmol/L (7-16); AST,SGOT 25 U/L (5-34); BILIRUBIN,TOTAL 0.4 mg/dL (0.2-1.2); BLOOD UREA NITROGEN 36 mg/dL (10-20); CALCIUM 9.6 mg/dL (8.4-10.2); CARBON DIOXIDE 27 mmol/L (23-31); CHLORIDE 101 mmol/L (98-107); CREATININE, serum 1.57 mg/dL (0.57-1.11); GLUCOSE 155 mg/dL (70-99); POTASSIUM 3.7 mmol/L (3.5-4.5); SODIUM 139 mmol/L (136-145); TOTAL PROTEIN 7.3 gm/dL (6.2-8.1)
[2021-09-07 23:04] LABS: TROPONIN-I < 0.010 ng/mL (0.00-0.033)
[2021-09-07 23:54] LABS: COLLECTION METHOD CLEAN CATCH
[2021-09-08 00:14] LABS: MUCOUS Present /lpf; PH 6 (5-8); URINE APPEARANCE Cloudy; URINE BACTERIA Rare /hpf; URINE BILIRUBIN Negative (NEGATIVE); URINE BLOOD Negative (NEGATIVE); URINE COLOR Yellow; URINE GLUCOSE Negative (NEGATIVE); URINE KETONE Negative (NEGATIVE); URINE LEUKOCYTE ESTERASE 1+ (NEGATIVE); URINE NITRATE Positive (NEGATIVE); URINE PROTEIN(semi-quant) Negative (NEGATIVE); URINE RBC 0-2 /hpf; URINE UROBILINOGEN Negative (NEGATIVE)
[2021-09-08] MEDS ORDERED: OMNICEF 300MG300 MG PO (00:31)
[2021-09-08 01:09] VITALS: BP 135/64; PULSE 54; TEMP 98.5
== END 2021-09-08 01:09 | disposition home or self-care (01) ==
LOC: COL.ER 21:49
PROVIDERS: Nurse Practitioner Primary Care
DX: R06.02 Shortness of breath (principal); N39.0 Urinary tract infection, site not specified; I12.9 Hypertensive chronic kidney disease with stage 1 through stage 4 chronic kidney disease, or unspecified chronic kidney disease; N18.30 Chronic kidney disease, stage 3 unspecified; K21.9 Gastro-esophageal reflux disease without esophagitis; E78.5 Hyperlipidemia, unspecified; I48.91 Unspecified atrial fibrillation; Z79.82 Long term (current) use of aspirin; E07.9 Disorder of thyroid, unspecified; Z79.01 Long term (current) use of anticoagulants; Z79.890 Hormone replacement therapy; Z79.899 Other long term (current) drug therapy

== ENCOUNTER 2021-10-10 07:45 | Emergency (ER) | payer MEDICARE, BC ==
[~2021-10-10] VITALS: Ht 157.5 cm; Wt 75.0 kg
[~2021-10-10 07:45] MED LIST changes: +OMNICEF 300MG300 MG PO
[2021-10-10 07:55] VITALS: TEMP 96.9
[2021-10-10 08:30] LABS: BASO # 0.1 K/mm3 (0.0-0.2); BASO % 0.8 % (0.0-2.0); EOS # 0.1 K/mm3 (0.0-0.7); GRAN # 4.1 K/mm3 (1.4-6.5); HEMATOCRIT 39.3 % (37.0-47.0); HEMOGLOBIN 13.1 g/dl (12.5-16.0); LYMPH # 1.4 K/mm3 (1.2-3.4); LYMPH % 22.4 % (20.0-51.0); MEAN CELL VOLUME 93 fl (80.0-100.0); MEAN CORPUSCULAR HEMOGLOBIN 31 pg (27.0-31.0); MEAN CORPUSCULAR HGB CONC 33 g/dl (33.0-37.0); MONO # 0.4 K/mm3 (0.1-0.6); MONO % 6.5 % (1.7-9.3); PLATELET COUNT 224 K/mm3 (130-400); RED BLOOD COUNT 4.24 M/mm3 (4.10-5.30); REDCELL DISTRIBUTION WIDTH-CV 13.9 % (11.5-14.5)
[2021-10-10 08:39] LABS: INR 1.3 (0.8-3.0)
[2021-10-10 08:42] LABS: PARTIAL THROMBOPLASTIN TIME 32.2 SECONDS (26.0-37.0)
[2021-10-10 08:45] LABS: ALBUMIN 3.7 gm/dL (3.4-4.8); BILIRUBIN,TOTAL 0.5 mg/dL (0.2-1.2); CALCIUM 9.7 mg/dL (8.4-10.2); CREATININE, serum 1.36 mg/dL (0.57-1.11); POTASSIUM 3.6 mmol/L (3.5-4.5); TOTAL PROTEIN 7.1 gm/dL (6.2-8.1)
[2021-10-10 08:55] LABS: TROPONIN-I 0.12 ng/mL (0.00-0.033)
[2021-10-10 10:32] VITALS: BP 131/80; PULSE 60
== END 2021-10-10 10:32 | disposition short-term general hospital (02) ==
LOC: COL.ER 07:45
PROVIDERS: Family Medicine
DX: J81.1 Chronic pulmonary edema (principal); I21.3 ST elevation (STEMI) myocardial infarction of unspecified site; I48.91 Unspecified atrial fibrillation; E78.5 Hyperlipidemia, unspecified; K21.9 Gastro-esophageal reflux disease without esophagitis; I12.9 Hypertensive chronic kidney disease with stage 1 through stage 4 chronic kidney disease, or unspecified chronic kidney disease; N18.30 Chronic kidney disease, stage 3 unspecified; E07.9 Disorder of thyroid, unspecified; Z86.16 Personal history of COVID-19; Z88.6 Allergy status to analgesic agent; Z79.01 Long term (current) use of anticoagulants; Z79.82 Long term (current) use of aspirin; Z79.890 Hormone replacement therapy; Z79.899 Other long term (current) drug therapy
CPT/HCPCS: A4314; J1644; J1940; J3101

== ENCOUNTER 2021-10-14 09:34 | Inpatient (IN) | payer MEDICARE, BC ==
[~2021-10-14] VITALS: Ht 157.5 cm; Wt 76.6 kg
[2021-10-14] VITALS (64 sets, daily range): BP systolic 133; BP diastolic 63; PULSE 55–58; TEMP 98.2; O2SAT 70–99
[2021-10-14 10:36] LABS: GRAN # 9.4 K/mm3 (1.4-6.5); GRAN % 85.3 % (42.2-75.2); HEMOGLOBIN 11.9 g/dl (12.5-16.0); LYMPH # 0.9 K/mm3 (1.2-3.4); LYMPH % 7.9 % (20.0-51.0); MEAN CELL VOLUME 91 fl (80.0-100.0); MEAN CORPUSCULAR HEMOGLOBIN 31 pg (27.0-31.0); MEAN CORPUSCULAR HGB CONC 34 g/dl (33.0-37.0); MEAN PLATELET VOLUME 10.7 fl (7.4-10.4); MONO # 0.7 K/mm3 (0.1-0.6); MONO % 6.1 % (1.7-9.3); PLATELET COUNT 249 K/mm3 (130-400); RED BLOOD COUNT 3.81 M/mm3 (4.10-5.30)
[2021-10-14 10:37] LABS: HEMATOCRIT 34.6 % (37.0-47.0)
[2021-10-14 10:41] LABS: INR 1.1 (0.8-3.0); PROTHROMBIN TIME 12.3 SECONDS (9.7-12.8)
[2021-10-14 10:44] LABS: PARTIAL THROMBOPLASTIN TIME 25.3 SECONDS (26.0-37.0)
[2021-10-14 10:51] LABS: BILIRUBIN,TOTAL 0.5 mg/dL (0.2-1.2); CALCIUM 8.8 mg/dL (8.4-10.2); CREATININE, serum 1.13 mg/dL (0.57-1.11); POTASSIUM 3.7 mmol/L (3.5-4.5)
[2021-10-14 10:59] LABS: TROPONIN-I 4.422 ng/mL (0.00-0.033)
[2021-10-14] MEDS ORDERED: LIPITOR 80MG80 MG PO (14:35)
[2021-10-14] MEDS ORDERED: PLAVIX 75MG TAB75 MG PO (14:37)
[2021-10-14] MEDS ORDERED: CEPHALEXIN250 M1 PO (14:37)
[2021-10-14] MEDS ORDERED: TOPROL XL 25MG25 MG PO (14:38)
[2021-10-14] MEDS ORDERED: TYLENOL 325MG325 MG PO (14:40)
[2021-10-14] MEDS ORDERED: TYLENOL W/COD1 UDTAB PO (14:41)
[2021-10-14] MEDS ORDERED: ZOVIRAX 200MG200 MG PO (14:42)
[2021-10-14] MEDS ORDERED: CALCIUM 600600 MG PO (14:44)
[2021-10-14] MEDS ORDERED: CALCIUM-MAGNES1 EAC1 PO (14:44)
[2021-10-14] MEDS ORDERED: MASON NATURAL2000 IU PO (14:45)
[2021-10-14] MEDS ORDERED: LOTRISONE CREAM15 GM TP (14:46)
[2021-10-14] MEDS ORDERED: DULCOLAX STOOL100 MG PO (14:47)
[2021-10-14] MEDS ORDERED: ELIQUIS 5MG PO (14:47)
[2021-10-14] MEDS ORDERED: MASON NATURAL1200 MG PO (14:48)
[2021-10-14] MEDS ORDERED: PEPCID40 MG PO (14:48)
[2021-10-14] MEDS ORDERED: AK POLY BAC OP (14:50)
[2021-10-14] MEDS ORDERED: MAXITROL OPHTH3.5 GM OP (14:51)
[2021-10-14] MEDS ORDERED: MIRALAX PA17 GM/Dose PO (14:52)
[2021-10-14] MEDS ORDERED: OSTEO-BI-FLEX 21 TAB PO (14:52)
[2021-10-14] MEDS ORDERED: ALDACTONE 25MG25 M1 PO (14:53)
[2021-10-14] MEDS ORDERED: DEMADEX 20MG20 M1 PO (14:55)
[2021-10-14] MEDS ORDERED: VESICARE10 MG PO (14:56)
[2021-10-14] MEDS ORDERED: WOMEN'S DAILY1 TAB PO (14:57)
--- NOTE | 2021-10-14 21:50 | NUR ---
PATIENT ARRIVES FROM ER, GUILLE RN GIVES REPORT/ PATIENT DENIES PAIN AT THIS TIME/ IV NITRO DRIP ACTIVE AT 10 MCQ /MIN
[2021-10-15] VITALS (372 sets, daily range): BP systolic 94–139; BP diastolic 45–72; PULSE 50–60; TEMP 97.6–98.6; O2SAT 86–100
[2021-10-15 04:48] LABS: CALCIUM 8.8 mg/dL (8.4-10.2); CREATININE, serum 0.92 mg/dL (0.57-1.11); POTASSIUM 3.6 mmol/L (3.5-4.5)
[2021-10-15 06:14] LABS: EOS % 0.2 % (0-4.0); GRAN # 6.1 K/mm3 (1.4-6.5); GRAN % 72.3 % (42.2-75.2); HEMOGLOBIN 11.6 g/dl (12.5-16.0); LYMPH # 1.5 K/mm3 (1.2-3.4); MEAN CELL VOLUME 91 fl (80.0-100.0); MEAN CORPUSCULAR HEMOGLOBIN 31 pg (27.0-31.0); MEAN CORPUSCULAR HGB CONC 34 g/dl (33.0-37.0); MONO # 0.7 K/mm3 (0.1-0.6); MONO % 8.4 % (1.7-9.3); PLATELET COUNT 218 K/mm3 (130-400); RED BLOOD COUNT 3.72 M/mm3 (4.10-5.30); REDCELL DISTRIBUTION WIDTH-CV 14.3 % (11.5-14.5)
[2021-10-15 06:16] LABS: HEMATOCRIT 33.9 % (37.0-47.0)
--- NOTE | 2021-10-15 08:45 | NUR ---
Alert and oriented and resting in bed visiting with daughter at bedside. Reports that she slept well and denies any pain this morning. VS stable; will continue to monitor.
--- NOTE | 2021-10-15 09:54 | NUR ---
Attempted to have a BM this morning but was unsuccessful. Received ok per Dr. Loja to administer juice with miralax to help stimulate a bowel movement. Will monitor for success.
--- NOTE | 2021-10-15 13:10 | NUR ---
Discussed plan of care with DAPHNEY Roe with Dr. Loja. Patient has denied any chest pain or shortness of breath and reports "feeling good". Ok from Dr. Loja's stand point to discharge. Hospitalist notfied and will put in discharge orders.
[2021-10-15] MEDS ORDERED: NITROSTAT0.4 MG/TAB SL (13:27)
--- NOTE | 2021-10-15 13:27 | NUR ---
medical social worker met patient and patient's daughter Nava ([phone]) at patient's bedside. Patient reports that she lives at home alone here in [place]. Patient reports that she is fully independent with her activities of daily living. Reports that she always utilizes a walker to assist with ambulation and that she also have a cane, wheelchair, grab bars around for when she needs them. Patient uses a CPAP machine at home that is managed through [employer] [employer]. PCP is Dr. James and she utilizes [facility] for perscriptions with no cost difficulty. Patient does have a DPOA-HC established and the hospital has a copy of it on file listing her daughter as her agent. Nava lives in [place], but is planning on staying with the patient for about 3 weeks to make sure the patient is ok at home.
--- NOTE | 2021-10-15 14:00 | NUR ---
Discharge packed provided and reviewed with patient and daughter. Discharged to the ER exit with Daughter. Alert and oriented and in no distress upon dischaerge.
== END 2021-10-15 14:00 | disposition home or self-care (01) | DRG 313 ==
LOC: COL.ER 09:34 → ICU 17:06
PROVIDERS: Family Medicine; Physician Assistant; ADMIT Internal Medicine
DX: R07.9 Chest pain, unspecified (principal); N17.9 Acute kidney failure, unspecified; I25.10 Atherosclerotic heart disease of native coronary artery without angina pectoris; I48.91 Unspecified atrial fibrillation; E78.5 Hyperlipidemia, unspecified; G47.30 Sleep apnea, unspecified; E03.9 Hypothyroidism, unspecified; K21.9 Gastro-esophageal reflux disease without esophagitis; G89.29 Other chronic pain; D64.9 Anemia, unspecified; K44.9 Diaphragmatic hernia without obstruction or gangrene; F17.210 Nicotine dependence, cigarettes, uncomplicated; I12.9 Hypertensive chronic kidney disease with stage 1 through stage 4 chronic kidney disease, or unspecified chronic kidney disease; N18.9 Chronic kidney disease, unspecified; K59.00 Constipation, unspecified; Z96.641 Presence of right artificial hip joint; I25.2 Old myocardial infarction; Z95.5 Presence of coronary angioplasty implant and graft; Z79.82 Long term (current) use of aspirin; Z23 Encounter for immunization
CPT/HCPCS: 99223-AI; 99239; J3480

== ENCOUNTER 2021-11-24 12:15 | Outpatient (RCR) | payer MEDICARE, BC ==
[~2021-11-24 12:15] MED LIST changes: +AK POLY BAC OP; +CALCIUM 600600 MG PO; +CALCIUM-MAGNES1 EAC1 PO; +CEPHALEXIN250 M1 PO; +DULCOLAX STOOL100 MG PO; +LIPITOR 80MG80 MG PO; +LOTRISONE CREAM15 GM TP; +MASON NATURAL1200 MG PO; +MASON NATURAL2000 IU PO; +MAXITROL OPHTH3.5 GM OP; +MIRALAX PA17 GM/Dose PO; +NITROSTAT0.4 MG/TAB SL; +PLAVIX 75MG TAB75 MG PO; +TYLENOL W/COD1 UDTAB PO; +WOMEN'S DAILY1 TAB PO
== END 2021-11-26 | disposition home or self-care (01) ==
LOC: COL.CR
DX: Z48.812 Encounter for surgical aftercare following surgery on the circulatory system (principal); Z95.5 Presence of coronary angioplasty implant and graft

== ENCOUNTER → 2021-12-27 | Outpatient (RCR) | payer MEDICARE, BC | END | disposition home or self-care (01) | LOC: COL.CR | DX: Z48.812 Encounter for surgical aftercare following surgery on the circulatory system (principal); Z95.5 Presence of coronary angioplasty implant and graft ==

== ENCOUNTER 2022-01-13 08:08 | Emergency (ER) | payer MEDICARE, BC ==
[~2022-01-13] VITALS: Ht 157.5 cm; Wt 75.0 kg
[2022-01-13 08:15] VITALS: TEMP 97.9
[2022-01-13] MEDS ORDERED: KLOR-CON20 MEQ PO (08:48)
[2022-01-13 10:53] VITALS: BP 129/62; PULSE 51
== END 2022-01-13 10:48 | disposition home or self-care (01) ==
LOC: COL.ER 08:08
DX: M79.604 Pain in right leg (principal); I48.91 Unspecified atrial fibrillation; E03.9 Hypothyroidism, unspecified; E78.5 Hyperlipidemia, unspecified; K21.9 Gastro-esophageal reflux disease without esophagitis; I25.10 Atherosclerotic heart disease of native coronary artery without angina pectoris; Z95.5 Presence of coronary angioplasty implant and graft; Z79.01 Long term (current) use of anticoagulants; Z79.890 Hormone replacement therapy; Z79.899 Other long term (current) drug therapy; Z79.02 Long term (current) use of antithrombotics/antiplatelets

== ENCOUNTER → 2022-01-24 | Outpatient (RCR) | payer MEDICARE, BC ==
[~2022-01-24] MED LIST changes: +KLOR-CON20 MEQ PO
== END | disposition home or self-care (01) ==
LOC: COL.CR
DX: Z48.812 Encounter for surgical aftercare following surgery on the circulatory system (principal); Z95.5 Presence of coronary angioplasty implant and graft; I25.2 Old myocardial infarction

== ENCOUNTER 2022-02-09 13:17 | Outpatient (RCR) | payer MEDICARE, BC | END 2022-02-09 13:26 | disposition home or self-care (01) | LOC: COL.CR 13:17 | DX: Z48.812 Encounter for surgical aftercare following surgery on the circulatory system (principal); Z95.5 Presence of coronary angioplasty implant and graft; I25.2 Old myocardial infarction ==

== ENCOUNTER 2022-03-06 09:27 | Emergency (ER) | payer MEDICARE, BC ==
[~2022-03-06] VITALS: Ht 157.5 cm; Wt 75.0 kg
[2022-03-06 09:32] VITALS: TEMP 97.7
[2022-03-06 09:56] LABS: BASO % 0.4 % (0.0-2.0); EOS # 0.1 K/mm3 (0.0-0.7); EOS % 1.4 % (0.0-4.0); GRAN # 3.8 K/mm3 (1.4-6.5); GRAN % 68.1 % (42.2-75.2); HEMATOCRIT 36.4 % (37.0-47.0); HEMOGLOBIN 11.9 g/dl (12.5-16.0); LYMPH # 1.2 K/mm3 (1.2-3.4); LYMPH % 20.7 % (20.0-51.0); MEAN CELL VOLUME 91 fl (80.0-100.0); MEAN CORPUSCULAR HEMOGLOBIN 30 pg (27-31); MEAN CORPUSCULAR HGB CONC 33 g/dl (33.0-37.0); MEAN PLATELET VOLUME 10.2 fl (7.4-10.4); MONO # 0.5 K/mm3 (0.1-0.6); MONO % 8.9 % (1.7-9.3); PLATELET COUNT 217 K/mm3 (130-400); REDCELL DISTRIBUTION WIDTH-CV 16.4 % (11.5-14.5)
[2022-03-06 10:03] LABS: INR 1.2 (0.8-3.0); PROTHROMBIN TIME 13.5 SECONDS (9.7-12.8)
[2022-03-06 10:06] LABS: PARTIAL THROMBOPLASTIN TIME 32.9 SECONDS (26.0-37.0)
[2022-03-06 10:13] LABS: ALBUMIN 3.7 gm/dL (3.4-4.8); BILIRUBIN,TOTAL 0.5 mg/dL (0.2-1.2); CREATININE, serum 1.39 mg/dL (0.57-1.11); POTASSIUM 3.8 mmol/L (3.5-4.5); TOTAL PROTEIN 6.7 gm/dL (6.2-8.1)
[2022-03-06 10:18] LABS: TROPONIN-I 0.019 ng/mL (0.00-0.033)
[2022-03-06] MEDS ORDERED: PRILOSEC 20MG20 MG PO (13:23)
[2022-03-06 13:39] VITALS: BP 156/71; PULSE 47
== END 2022-03-06 13:36 | disposition home or self-care (01) ==
LOC: COL.ER 09:27
PROVIDERS: Family Medicine
DX: K21.9 Gastro-esophageal reflux disease without esophagitis (principal); Z86.74 Personal history of sudden cardiac arrest; Z95.5 Presence of coronary angioplasty implant and graft
CPT/HCPCS: C9113

== ENCOUNTER 2022-03-25 10:19 | Outpatient (RCR) | payer SELFPAY ==
[~2022-03-25 10:19] MED LIST changes: +PRILOSEC 20MG20 MG PO
== END 2022-03-26 ==
LOC: COL.CR
DX: Z29.8 Encounter for other specified prophylactic measures (principal)

== ENCOUNTER 2022-04-22 12:09 | Outpatient (RCR) | payer SELFPAY | END 2022-04-26 | LOC: COL.CR | DX: Z29.8 Encounter for other specified prophylactic measures (principal) ==

== ENCOUNTER 2022-05-25 14:55 | Outpatient (RCR) | payer SELFPAY | END 2022-05-26 | LOC: COL.CR | DX: Z29.8 Encounter for other specified prophylactic measures (principal) ==

== ENCOUNTER 2022-06-24 13:05 | Outpatient (RCR) | payer SELFPAY | END 2022-06-26 | LOC: COL.CR | DX: Z29.8 Encounter for other specified prophylactic measures (principal) ==

== ENCOUNTER → 2022-07-27 | Outpatient (RCR) | payer SELFPAY | LOC: COL.CR | DX: Z29.8 Encounter for other specified prophylactic measures (principal) ==

== ENCOUNTER 2022-12-26 12:09 | Outpatient (RCR) | payer MEDICARE, BC ==
[~2022-12-26 12:09] MED LIST changes: +B-121000 MCG PO; +FIBERCON PO; +GLUCOSAMINE & C1 TAB PO; +K-TAB20 PO; +MAGNESIUM500 MG PO; +MULTI VITAMINS1 TAB PO; +OMEGA-3 1000 MG1 CAP PO; +PREDNISONE20 MG PO; +SYNTHROID0.125 MG/T PO; +VIACTIV PO
== END 2022-12-27 | disposition home or self-care (01) ==
LOC: COL.CR
DX: I25.10 Atherosclerotic heart disease of native coronary artery without angina pectoris (principal)

== ENCOUNTER 2023-01-23 11:37 | Outpatient (RCR) | payer MEDICARE, BC | END 2023-01-24 | disposition home or self-care (01) | LOC: COL.CR | DX: I25.10 Atherosclerotic heart disease of native coronary artery without angina pectoris (principal) ==

== ENCOUNTER → 2023-02-24 | Outpatient (RCR) | payer MEDICARE, BC | END | disposition home or self-care (01) | LOC: COL.CR | DX: I25.10 Atherosclerotic heart disease of native coronary artery without angina pectoris (principal) ==

== ENCOUNTER → 2023-12-13 | Outpatient (CLI) | payer MEDICARE, BC ==
[~2023-12-13] MED LIST changes: +DOXYCYCLINE HY100 MG PO
== END ==
LOC: DIA.ED 10:22
DX: E11.59 Type 2 diabetes mellitus with other circulatory complications (principal); E78.5 Hyperlipidemia, unspecified; I10 Essential (primary) hypertension
CPT/HCPCS: G0108

== ENCOUNTER → 2023-12-15 | Outpatient (CLI) | payer MEDICARE, BC | LOC: DIA.ED 12-14 09:00 | DX: E11.59 Type 2 diabetes mellitus with other circulatory complications (principal); E11.40 Type 2 diabetes mellitus with diabetic neuropathy, unspecified; E78.5 Hyperlipidemia, unspecified; I10 Essential (primary) hypertension | CPT/HCPCS: G0108 ==